=== PATIENT | female | born 1995 | race Caucasian/White ===

== ENCOUNTER 2017-05-19 19:52 | Emergency (ER) | payer BC ==
[2017-05-19 20:28] VITALS: BP 111/71
--- NOTE | 2017-05-19 21:27 | UC ---
Ear Complaint HPI - HPI Summary HPI Summary: Right ear pain for the last 24 hours. Lots of pain and pressure. - History of Current Complaint Chief Complaint: UCRespiratory Stated Complaint: EAR PRESSURE,PAIN Time Seen by Provider: 05/19/17 21:10 Hx Obtained From: Patient Hx Last Menstrual Period: 05/07/17 ?: No Onset/Duration: Sudden Onset, Lasting Hours Severity Initially: Moderate Severity Currently: Moderate Associated Signs/Symptoms: Positive: Swelling @, URI Symptoms - Allergies/Home Medications Allergies/Adverse Reactions: Allergies Allergy/AdvReac Type Severity Reaction Status Date / Time No Known Allergies Allergy Verified 05/19/17 20:28 Home Medications: Home Medications Norgestimate-Ethinyl Estradiol [[id number] 0.18/0.215/0.25 mg-25 Mcg] 1 tab PO 05/19/17 [History] PMH/Surg Hx/FS Hx/Imm Hx Previously Healthy: Yes - Surgical History Surgical History: Yes Surgery Procedure, Year, and Place: foot and shoulder - Family History Known Family History: Negative: Cardiac Disease, Hypertension - Social History Alcohol Use: None Substance Use Type: None Smoking Status (MU): Never Smoked Tobacco Review of Systems Constitutional: Negative Skin: Negative Eyes: Negative ENT: Ear Ache Respiratory: Negative Cardiovascular: Negative Gastrointestinal: Negative Genitourinary: Negative Motor: Negative Neurovascular: Negative Musculoskeletal: Negative Neurological: Negative Psychological: Negative All Other Systems Reviewed And Are Negative: Yes Physical Exam Triage Information Reviewed: Yes Appearance: Well-Appearing, Well-Nourished, Pain Distress Vital Signs: Initial Vital Signs Temp 98.4 F 05/19/17 20:24 Pulse 75 05/19/17 20:24 Resp 18 05/19/17 20:24 BP 111/71 05/19/17 20:24 Pulse Ox 99 05/19/17 20:24 Eye Exam: Normal Eyes: Positive: Conjunctiva Clear ENT: Positive: Pharyngeal erythema, TM bulging, TM dull, TM red - right, let is normal Dental Exam: Normal Neck exam: Normal Respiratory Exam: Normal Respiratory: Positive: Chest non-tender, Lungs clear, Normal breath sounds Cardiovascular Exam: Normal Cardiovascular: Positive: RRR, No Murmur, Pulses Normal Abdominal Exam: Normal Bowel Sounds: Positive: Present Musculoskeletal Exam: Normal Neurological Exam: Normal Psychological Exam: Normal Skin Exam: Normal Ear Complaint Course/Dx - Course Course Of Treatment: hx obtained, exam performed, meds reviewed, treated for right otitis media - Differential Dx/Diagnosis Differential Diagnosis/HQI/PQRI: Cellulitis, Cerumen Impaction, Otitis Externa, Otitis Media Provider Diagnoses: otitis media, right Discharge - Discharge Plan Condition: Stable Disposition: HOME Prescriptions: Amoxicillin [Amoxicillin 250 MG CHEWABLE-] 250 mg PO BID #[id number] tab.chew Patient Education Materials: Otitis Media (ED) Additional Instructions: 1. take the medication as prescribed. 2. Increase fluid intake and get plenty of rest. 3. FOllow up with any worsening symtpoms.
== END 2017-05-19 21:35 | disposition home or self-care (01) ==
LOC: UCEAST 19:52
DX: H66.91 Otitis media, unspecified, right ear (principal)
CPT/HCPCS: 99212; G0463